=== PATIENT | female | born 1965 | race Caucasian/White ===

== ENCOUNTER → 2022-09-11 | Outpatient (CLI) | payer MEDICARE, MEDICAID ==
[~2022-09-11] VITALS: Ht 165 cm; Wt 132.0 kg
[~2022-09-11] MED LIST: CATHETER FLUSH 10 ML SYR IVP PRN; REGADENOSON 0.4 MG/5 ML SYR (LEXISCAN) IV ONE
[2022-09-11 12:33] VITALS: BP 142/85
--- NOTE | 2022-09-12 10:36 | Cardiology Stress Test Report ---
Stress Test Report Date of Procedure/Referring: Date of Procedure: Sep 12, 2022 Juan Daniel Canseco DO Admitting Physician Admitting Physician: Attending Physician: Malika Anderson Baseline Heart Rate: 74 Baseline Blood Pressure: Blood Pressure Systolic: 142 Blood Pressure Diastolic: 85 Baseline Vitals Vital Signs Date Time Temp Pulse Resp B/P (MAP) Pulse Ox O2 Delivery O2 Flow Rate FiO2 09/11/22 12:33 74 142/85 (104) Baseline EKG: Baseline EKG: NSR Summary After explaining the procedure to the patient, she signed a consent and then brought to the stress nuclear laboratory. Patient received 0.4 mg Lexiscan for stress test, ECG, heart rate and blood pressure were monitored continuously. Resting and stress dose of radio tracer were injected, imaging was acquired and reviewed in short axis, horizontal long axis and vertical long axis views. TID: 1.11 SSS: 11 SDS: 4 EF: 72 1. Patient tolerated Lexiscan well 2. Reversible ischemia involving the inferior wall, fixed defect involving the basal to mid anterior wall 3. Normal left ventricular size, ejection fraction 72% MARTINA RAWLS MD Sep 12, 2022 10:36
== END ==
LOC: CARD 10:37
PROVIDERS: ATTEND Physician Assistant
DX: I25.9 Chronic ischemic heart disease, unspecified (principal); I10 Essential (primary) hypertension
CPT/HCPCS: 78452; 93017

== ENCOUNTER 2022-09-24 08:28 | Day surgery (SDC) | payer MEDICARE, MEDICAID ==
[2022-09-24] VITALS (9 sets, daily range): BP systolic 119–137; BP diastolic 67–91
[~2022-09-24] VITALS: Ht 165.1 cm; Wt 135.4 kg
[2022-09-24] MEDS ORDERED: LIDOCAINE 1% INJ 30 ML (XYLOCAINE) VIAL ONE (08:43)
[2022-09-24] MEDS ORDERED: HEParin (CATH LAB) 2,000 ML IV ONE (08:43)
[2022-09-24] MEDS ORDERED: NS IV 1000 ML 1,000 ML ONE (08:43)
[2022-09-24] MEDS ORDERED: NS IV 1000 ML 1,000 ML IV SCH ×2 (08:45→16:30)
--- NOTE | 2022-09-24 09:29 | Diagnostic Imaging Report ---
INDICATION: Chest pain. EXAMINATION: Portable chest. FINDINGS: The lungs are well-aerated and clear. The heart is not enlarged. No pulmonary edema. No pneumothorax or pleural effusion. IMPRESSION: Normal portable chest. Dictated by: Dictated on workstation # [id number]
[2022-09-24 09:34] LABS: HEMATOCRIT 43 % (35-52); HEMOGLOBIN 14.4 g/dL (11.5-16.0); MEAN CORPUSCULAR HEMOGLOBIN 32 pg (25-34); MEAN CORPUSCULAR HGB CONC 33 g/dL (32-36); MEAN CORPUSCULAR VOLUME 96 fL (80-99); MEAN PLATELET VOLUME 9.5 fL (9.0-12.2); PLATELET COUNT 198 10^3/uL (130-400); WHITE BLOOD COUNT 5.6 10^3/uL (4.3-11.0)
[2022-09-24 10:03] LABS: PROTHROMBIN TIME PATIENT 13.6 SEC (12.2-14.7)
[2022-09-24] MEDS ORDERED: CLOP75TA28 PO (10:06)
[2022-09-24] MEDS ORDERED: ERGO1250 PO (10:06)
[2022-09-24] MEDS ORDERED: IPRA4AER IH (10:06)
[2022-09-24] MEDS ORDERED: BACL20TA PO (10:06)
[2022-09-24] MEDS ORDERED: ATOR20TA66 PO (10:06)
[2022-09-24] MEDS ORDERED: CLON1TAB13 PO (10:06)
[2022-09-24] MEDS ORDERED: ALLO100T PO (10:06)
[2022-09-24] MEDS ORDERED: POTA-177 PO ×2 (10:07)
[2022-09-24] MEDS ORDERED: QUET100T33 PO (10:07)
[2022-09-24] MEDS ORDERED: CARI1.5C PO (10:07)
[2022-09-24] MEDS ORDERED: PREG100C55 PO (10:07)
[2022-09-24] MEDS ORDERED: QUET50TA23 PO (10:07)
[2022-09-24] MEDS ORDERED: MONT-40 PO (10:07)
[2022-09-24] MEDS ORDERED: QUET200T29 PO (10:07)
[2022-09-24] MEDS ORDERED: TIZA-186 PO (10:07)
[2022-09-24] MEDS ORDERED: LATA7.5D OU (10:07)
[2022-09-24 10:10] LABS: ALANINE AMINOTRANSFERASE 26 U/L (0-55); ALBUMIN 4.6 GM/DL (3.2-4.5); ALKALINE PHOSPHATASE 91 U/L (40-136); BILIRUBIN,TOTAL 1.1 MG/DL (0.1-1.0); BUN/CREATININE RATIO 14; CALCIUM 9.6 MG/DL (8.5-10.1); CARBON DIOXIDE 26 MMOL/L (21-32); CHLORIDE 107 MMOL/L (98-107); CHOLESTEROL 161 MG/DL (< 200); CREATININE SERUM 1.13 MG/DL (0.60-1.30); GFR ESTIMATED 56; GLUCOSE 101 MG/DL (70-105); HDL CHOLESTEROL 68 MG/DL (40-60); POTASSIUM 3.7 MMOL/L (3.6-5.0); SODIUM 143 MMOL/L (135-145); TOTAL PROTEIN 8.1 GM/DL (6.4-8.2); TRIGLYCERIDES 134 MG/DL (<150); VLDL CHOLESTEROL 27 MG/DL (5-40)
--- NOTE | 2022-09-24 13:08 | Cardiac Procedure Note-CS/ASA ---
Pre-Procedure Note Pre-Op Procedure Note Date of Available H&P: Sep 15, 2022 Date H&P Reviewed: Sep 24, 2022 Time H&P Reviewed: 13:08 History & Physical: H&P Reviewed, Patient Examed, No changes noted Pre-Operative Diagnosis: CAD Conscious Sedation Pre-Proced Time 13:08 ASA Score 3 For ASA 3 and 4: Consider anesthesia and medical clearance. Also, for patients with a history of failed moderate sedation consider anesthesia. Airway Lungs Heart ASA score ASA 1: a normal healthy patient ASA 2: a patient with a mild systemic disease (mid diabetes, controlled hypertension, obesity ASA 3: a patient with a severe systemic disease that limits activity (angina, COPD, prior Myocardial infarction) ASA 4: a patient with an incapacitating disease that is a constant threat to life (CHF, renal failure) ASA 5: a moribund patient not expected to survive 24 hrs. (ruptured aneurysm) ASA 6: a declared brain- patient whose organs are being harvested. For emergent operations, add the letter E after the classification Mallampati Classification Grade 3 Sedation Plan Analgesia, Amnesia, Plan communicated to team members, Discussed options with patient/fam, Discussed risks with patient/fam The patient is an appropriate candidate to undergo the planned procedure, sedation, and anesthesia. The patient immediately re-assessed prior to indication. MARTINA RAWLS MD Sep 24, 2022 13:08
[2022-09-24] MEDS ORDERED: fentaNYL INJ 100 MCG/2 ML AMP ONE (15:51)
[2022-09-24] MEDS ORDERED: MIDAZOLAM 5 MG/5 ML (VERSED) VIAL ONE (15:51)
[2022-09-24] MEDS ORDERED: VERAPAMIL 5 MG/2 ML (CALAN) VIAL IV ONE (15:55)
[2022-09-24] MEDS ORDERED: NITRO DRIP 25000 MCG/D5W 250 ML IV ONE (15:55)
[2022-09-24] MEDS ORDERED: HEParin 1000 UNIT/ML (10ML VIAL) FOR BOLUS ONE (15:55)
[2022-09-24] MEDS ORDERED: diphenhydrAMINE 50 MG/ML INJ (BENADRYL) ONE (16:16)
[2022-09-24] MEDS ORDERED: methylPREDNISolone 125 MG (Solu-MEDROL) VIAL ONE (16:16)
--- NOTE | 2022-09-24 16:24 | Discharge Inst-Post CATH ---
Discharge Inst-CATH/EP Problems Reviewed?: Yes Post Cardiac Cath/EP D/C Inst Follow Up/Plan Appointment with Dr. Comer's office in 2 to 4 weeks <b>CARDIAC CATH/EP PROCEDURE DISCHARGE INSTRUCTIONS</b> ACTIVITY * Go Home directly and rest. * Limit activity of the leg (or wrist if it was used) for 7 days including aer obics, swimming, jogging, bicycling, etc. * Restrict stair-climbing for 7 days if possible, if not, climb up with your non-cath leg, then bring together on the same step. * Avoid lifting, pushing, pulling or excessive movement of the affected extremi ty for 7 days. * Customary sexual activity may be resumed after 2 days-use caution not to use a position that strains or causes pain to the affected extremity. * No driving for 24 hours. * NO SMOKING. * Avoid straining for bowel movements for 7 days. * Gentle walking on level ground is allowed. * Returning to work will depend on the type of procedure and the results. Your doctor will discuss this with you. CALL YOUR DOCTOR FOR ANY OF THE FOLLOWING: *If bleeding from the puncture site occurs- Apply gentle pressure to site with clean cloth and call your doctor or EMS. * If a knot or lump forms under the skin, increases in size, or causes pain. * If bruising appears to be worsening or moving further down your leg instead of disappearing. * Temperature above 101 F. CARE OF YOUR GROIN INCISION; * Bruising or purple discoloration of the skin near the puncture site is common. * You may shower only, no bathtub bathing for 5 days. Be careful to avoid slipping as your leg may feel stiff. * If a closure device was used on your femoral artery, please see the attached guide regarding care of the device and your leg. * Leave dressing on FOR 24 hours. CARE OF YOUR WRIST INCISION; * Bruising or purple discoloration of the skin near the puncture site is common. * You may shower. * DO NOT submerge wrist. * Leave dressing on FOR 24 hours. MARTINA COMER MD Sep 24, 2022 16:24
--- NOTE | 2022-09-24 16:28 | Cardiac Cath Report ---
Cardiac Cath Report Physician (s)/Hand Singer (s) Physician MARTINA RAWLS MD Pre-Procedure Diagnosis Pre-Procedure Diagnosis: CAD Post-Procedure Note Procedure Start Date: Sep 24, 2022 Name of Procedure: Left heart catheterization Findings/Procedure Note PROCEDURE NOTE: 57-year-old lady with history of coronary artery disease, hypertension hyperlipidemia, had an abnormal stress test, scheduled for cardiac catheterization possible PTCA. After explaining the procedure to the patient, all pros and cons were explained, all questions were answered. The patient signed the consent and then she was placed in the cardiac catheterization laboratory. Groin was prepped in SL fashion local anesthesia was used. Sheath placed in the Right radial artery, Reliance catheter was advanced to the left ventricular cavity, pressure was measured, pullback LV to aorta was done, engage the right and left coronary system, angiogram was done. At the end of the procedure the sheath was removed. Vascular band was used FINDINGS: Hemodynamics LV 111/13, end-diastolic pressure of 13 Aorta 124/86 Gaby follow for ANATOMY: Left Main Is free of obstructive disease Left Anterior Descending Has mild disease nonobstructive disease Left Circumflex Has mild irregularity with no significant obstructive disease Right Coronary Artery Is dominant artery with mild disease nonobstructive LV Gram Was not done, pressure was measured CONCLUSION: 1. Mild coronary artery disease nonobstructive disease 2. Normal left ventricular end-diastolic pressure DISCUSSION AND RECOMMENDATION: Continue to maximize medical therapy, abnormal stress test is probably due to extracardiac attenuation Anesthesia Type: Conscious Sedation Estimated blood loss (mL): 10 ml Contrast Amount: 37 ml Total Radiation Dose: 416 mGy Post-Procedure Diagnosis Post-operative diagnosis: Chest pain Coronary artery disease Hypertension Hyperlipidemia. MARTINA RAWLS MD Sep 24, 2022 16:27
== END 2022-09-24 18:50 | disposition home or self-care (01) ==
LOC: CATH 08:28 → SDC 16:40 → CATH 18:50
PROVIDERS: ATTEND Internal Medicine Cardiovascular Disease
DX: I25.10 Atherosclerotic heart disease of native coronary artery without angina pectoris (principal); E66.01 Morbid (severe) obesity due to excess calories; E78.2 Mixed hyperlipidemia; I65.23 Occlusion and stenosis of bilateral carotid arteries; I12.9 Hypertensive chronic kidney disease with stage 1 through stage 4 chronic kidney disease, or unspecified chronic kidney disease; E11.22 Type 2 diabetes mellitus with diabetic chronic kidney disease; N18.9 Chronic kidney disease, unspecified; K21.9 Gastro-esophageal reflux disease without esophagitis; J44.9 Chronic obstructive pulmonary disease, unspecified; Z87.891 Personal history of nicotine dependence; Z68.42 Body mass index [BMI] 45.0-49.9, adult; Z79.02 Long term (current) use of antithrombotics/antiplatelets; Z86.73 Personal history of transient ischemic attack (TIA), and cerebral infarction without residual deficits
CPT/HCPCS: 36415; 71045; 80053; 80061; 85027; 85610; 85730; 87081; 93005; 93458